=== PATIENT | female | born 1965 | race Caucasian/White ===

== ENCOUNTER 2019-06-13 07:11 | Day surgery (SDC) | payer OTHER ==
[2019-06-12 13:17] VITALS: BMI 28.3
[2019-06-13] MEDS ORDERED: SUCCINYLCHOLINE CHLORIDE 200 MG/10 ML SYRINGE ONE (08:00)
[2019-06-13] MEDS ORDERED: ROCURONIUM BROMIDE 50 MG/5 ML SYRINGE ONE (08:00)
[2019-06-13] MEDS ORDERED: PROPOFOL 20 ML ONE ×4 (08:00→11:49)
[2019-06-13] MEDS ORDERED: VASOPRESSIN 20 UNITS/ML VIAL IV ONE (08:12)
[2019-06-13] MEDS ORDERED: MIDAZOLAM HCL 2 MG/2 ML SINGLE DOSE VIAL ONE (08:15)
[2019-06-13] MEDS ORDERED: BUPIVACAINE HCL/PF 0.5% (5 MG/ML) 30 ML VIAL IJ ONE (08:57)
[2019-06-13] MEDS ORDERED: ONDANSETRON 4 MG/2 ML VIAL IVPUSH PRN (09:47)
[2019-06-13] MEDS ORDERED: oxyCODONE HCL 5 MG TABLET PO PRN (09:47)
[2019-06-13] MEDS ORDERED: LIDOCAINE HCL 1%, 10 MG/ML (20ML VIAL) ONE (09:50)
[2019-06-13] MEDS ORDERED: ceFAZolin 2 GRAM PREMIX BAG IVPB ONE ×2 (09:50)
[2019-06-13] MEDS ORDERED: LACTATED RINGERS SOLUTION 1,000 ML IV SCH (10:00)
[2019-06-13] MEDS ORDERED: LIDOCAINE HCL 1%, 10 MG/ML (20ML VIAL) NR ONE (10:20)
--- NOTE | 2019-06-13 10:36 | OP ---
Operative Note - Note: Operative Date: 06/12/19 Pre-Operative Diagnosis: brooke cystocele Operation: sling , ant repair Findings: none Implants: sling Post-Operative Diagnosis: Same as Pre-op Surgeon: Sanchez Ross Anesthesia: General Specimens Removed: none
--- NOTE | 2019-06-13 10:54 | OP ---
DATE OF OPERATION: PREOPERATIVE DIAGNOSES: Stress urinary incontinence, cystocele. POSTOPERATIVE DIAGNOSES: Stress urinary incontinence, cystocele. PROCEDURE PERFORMED: Suburethral sling, urethropexy, anterior colporrhaphy, and cystoscopy. PRIMARY SURGEON: Sanchez Ross MD DESCRIPTION OF PROCEDURE: After adequate anesthesia, patient was prepped and draped in dorsal lithotomy position. Evaluation under anesthesia revealed no pelvic mass noted to be palpable. Dilute solution of Pitressin injected in the anterior vaginal wall and a vertical incision made over the anterior vaginal wall. The perivesical fascia was plicated away and plicated onto itself using 2-0 Vicryl suture in interrupted fashion. The mid urethral area was dissected off the space of Retzius. Transvaginal tape and sling were inserted in proper anatomical location. Cystoscopy was performed. There were no foreign bodies in the bladder and urine emanating from both ureteral orifices. Minimal tension was applied on the sling arm. Sling arm plastic was removed. Sling arm was cut off at the skin. Skin closed using Dermabond. The anterior vaginal wall closed using 2-0 Vicryl suture in continuous fashion. Allan [id number]
[2019-06-13] MEDS ORDERED: oxyCODONE HCL 5 MG TABLET ONE (13:52)
[2019-06-13] MEDS ORDERED: oxyCODONE HCL 5 MG TABLET PO ONE (13:55)
[2019-06-13 15:19] VITALS: BP 150/80; PULSE 60
[2019-06-13 17:16] VITALS: TEMP 97.8
== END 2019-06-13 16:07 | disposition home or self-care (01) ==
LOC: JASU-SURG 07:11
PROVIDERS: ATTEND Obstetrics & Gynecology Female Pelvic Medicine and Reconstructive Surgery
PROC: 0TJB8ZZ Inspection of Bladder, Via Natural or Artificial Opening Endoscopic (ICD-10-PCS; 2019-06-13)
PROC: 0TSD0ZZ Reposition Urethra, Open Approach (ICD-10-PCS; 2019-06-13)
PROC: 0JQC0ZZ Repair Pelvic Region Subcutaneous Tissue and Fascia, Open Approach (ICD-10-PCS; principal; 2019-06-13 09:00)
DX: N39.3 Stress incontinence (female) (male) (principal); N81.10 Cystocele, unspecified; I10 Essential (primary) hypertension; K21.9 Gastro-esophageal reflux disease without esophagitis; E06.3 Autoimmune thyroiditis; F41.8 Other specified anxiety disorders
CPT/HCPCS: 57240; 57288; C1771; 94760